=== PATIENT | female | born 1975 | race African-American/Black ===

== ENCOUNTER 2020-02-21 00:15 | Emergency (ER) | payer MEDICAID ==
[~2020-02-21] VITALS: Ht 162.6 cm; Wt 61.0 kg
[2020-02-21] MEDS ORDERED: KETOROLAC 30MG/ML VIAL IV STA (01:09)
[2020-02-21 02:13] LABS: CLARITY URINE CLEAR (CLEAR); COLOR URINE YELLOW (YELLOW); KETONES URINE TRACE (NEGATIVE); LEUKOCYTE ESTERASE URINE NEGATIVE (NEGATIVE); NITRITE URINE NEGATIVE (NEGATIVE); OCCULT BLOOD URINE 2+ (NEGATIVE); PH URINE 5.5 (4.5-8.0); PROTEIN URINE NEGATIVE (NEGATIVE); SPECIFIC GRAVITY URINE 1.031 (1.005-1.030)
[2020-02-21 02:48] LABS: BASOPHILS % 0.2 % (0.0-2.0); EOSINOPHILS % 1.4 % (0.0-5.0); HEMATOCRIT. 33.9 % (36.0-48.0); HEMOGLOBIN. 11.5 g/dL (12.0-16.0); LYMPHOCYTES % 21.8 % (20.0-50.0); MEAN CORPUSCULAR HEMOGLOBIN 30.7 pg (28.0-32.0); MEAN CORPUSCULAR VOLUME 90.4 fL (81.0-99.0); MEAN PLATELET VOLUME 7.4 fl (7.4-10.4); MONOCYTES % 7.2 % (2.0-8.0); NEUTROPHILS % 69.4 % (40.0-76.0); PLATELET 387 x1000/uL (130-400); RED BLOOD CELL COUNT 3.75 mill/uL (4.2-5.4)
[2020-02-21 02:49] LABS: CHLORIDE 107 mEq/L (98-107)
[2020-02-21 02:54] LABS: HCG SCREEN NEGATIVE
[2020-02-21 03:34] LABS: PROTHROMBIN TIME 10.5 sec (9.6-11.0)
[2020-02-21] MEDS ORDERED: POTASSIUM CHLORIDE 20MEQ TABLET SR PO SCH (04:30)
[2020-02-21] MEDS ORDERED: MAGNESIUM CITRATE 300ML SOLUTION PO ONE (04:30)
[2020-02-21 06:08] VITALS: BP 144/99
== END 2020-02-21 06:17 | disposition home or self-care (01) ==
LOC: ER 00:36
DX: K85.90 Acute pancreatitis without necrosis or infection, unspecified (principal); I10 Essential (primary) hypertension; K56.41 Fecal impaction; E87.6 Hypokalemia; D64.9 Anemia, unspecified
CPT/HCPCS: 36415; 74021; 76770; 80053; 81003; 83690; 84703; 85025; 85610; 96374; 99285; J1885

== ENCOUNTER 2020-03-03 19:55 | Emergency (ER) | payer MEDICAID ==
[~2020-03-03] VITALS: Ht 165.1 cm; Wt 59.0 kg
[2020-03-03] MEDS ORDERED: SODIUM CHLORIDE 0.9% 1,000 ML IV ONE (20:12)
[2020-03-03 20:50] LABS: BASOPHILS % 0.6 % (0.0-2.0); HEMATOCRIT. 42.8 % (36.0-48.0); HEMOGLOBIN. 14.5 g/dL (12.0-16.0); LYMPHOCYTES % 23.6 % (20.0-50.0); MEAN CORPUSCULAR HEMOGLOBIN 30.8 pg (28.0-32.0); MEAN PLATELET VOLUME 8.1 fl (7.4-10.4); MONOCYTES % 5.3 % (2.0-8.0); NEUTROPHILS % 69.5 % (40.0-76.0); PLATELET 390 x1000/uL (130-400)
[2020-03-03 20:56] LABS: CHLORIDE 103 mEq/L (98-107)
[2020-03-03 20:57] LABS: CLARITY URINE CLEAR (CLEAR); COLOR URINE YELLOW (YELLOW); KETONES URINE NEGATIVE (NEGATIVE); LEUKOCYTE ESTERASE URINE NEGATIVE (NEGATIVE); NITRITE URINE NEGATIVE (NEGATIVE); OCCULT BLOOD URINE NEGATIVE (NEGATIVE); PROTEIN URINE NEGATIVE (NEGATIVE); SPECIFIC GRAVITY URINE 1.005 (1.005-1.030); UROBILINOGEN URINE 0.2 E.U./dL (0.2-1.0)
[2020-03-03 21:00] LABS: ETHANOL BLOOD < 10 mg/dL
[2020-03-03 21:03] LABS: HCG SCREEN NEGATIVE
[2020-03-03 21:07] LABS: PROTHROMBIN TIME 10.3 sec (9.6-11.0)
[2020-03-03 21:17] LABS: *BENZODIAZEPINES SCREEN URINE NEGATIVE (NEGATIVE); *COCAINE SCREEN URINE NEGATIVE (NEGATIVE)
[2020-03-03 21:18] LABS: *AMPHETAMINES SCREEN URINE NEGATIVE (NEGATIVE); *BARBITURATES SCREEN URINE NEGATIVE (NEGATIVE); CANNABINOID URINE SCREEN NEGATIVE (NEGATIVE); METHADONE URINE SCREEN NEGATIVE (NEGATIVE); OPIATES URINE SCREEN NEGATIVE (NEGATIVE); PHENCYCLIDINE URINE SCREEN NEGATIVE (NEGATIVE)
[2020-03-04 00:47] VITALS: BP 106/64
== END 2020-03-04 00:48 | disposition home or self-care (01) ==
LOC: ER 19:55
DX: R10.9 Unspecified abdominal pain (principal); I10 Essential (primary) hypertension; K59.00 Constipation, unspecified; R19.7 Diarrhea, unspecified
CPT/HCPCS: 36415; 74176; 80053; 80305; 80320; 81003; 83690; 83880; 84484; 84703; 85025; 85610; 93005; 99285; J7030; G0480

== ENCOUNTER 2020-04-18 09:43 | Emergency (ER) | payer MEDICAID ==
[~2020-04-18] VITALS: Ht 165.1 cm; Wt 64.0 kg
[2020-04-18] MEDS ORDERED: NITROGLYCERIN 0.4MG TABLET SL SL PRN (10:30)
[2020-04-18] MEDS ORDERED: ASPIRIN 81MG TABLET PO ONE (10:30)
[2020-04-18 10:54] LABS: CLARITY URINE CLEAR (CLEAR); COLOR URINE YELLOW (YELLOW); KETONES URINE TRACE (NEGATIVE); LEUKOCYTE ESTERASE URINE NEGATIVE (NEGATIVE); NITRITE URINE NEGATIVE (NEGATIVE); OCCULT BLOOD URINE 1+ (NEGATIVE); PROTEIN URINE NEGATIVE (NEGATIVE); SPECIFIC GRAVITY URINE 1.029 (1.005-1.030); UROBILINOGEN URINE 0.2 E.U./dL (0.2-1.0)
[2020-04-18 11:02] LABS: BASOPHILS % 0.7 % (0.0-2.0); EOSINOPHILS % 1.7 % (0.0-5.0); HEMATOCRIT. 35.3 % (36.0-48.0); HEMOGLOBIN. 11.9 g/dL (12.0-16.0); LYMPHOCYTES % 16.8 % (20.0-50.0); MEAN CORPUSCULAR HEMOGLOBIN 31.5 pg (28.0-32.0); MEAN CORPUSCULAR VOLUME 93.2 fL (81.0-99.0); MEAN PLATELET VOLUME 7.8 fl (7.4-10.4); NEUTROPHILS % 71.8 % (40.0-76.0); PLATELET 322 x1000/uL (130-400); RED BLOOD CELL COUNT 3.78 mill/uL (4.2-5.4); RED CELL DISTRIBUTION WIDTH 14.3 % (11.6-14.6)
[2020-04-18 11:03] LABS: CHLORIDE 108 mEq/L (98-107)
[2020-04-18 11:18] LABS: HCG SCREEN NEGATIVE
[2020-04-18 11:29] LABS: *AMPHETAMINES SCREEN URINE NEGATIVE (NEGATIVE); *BENZODIAZEPINES SCREEN URINE NEGATIVE (NEGATIVE); *COCAINE SCREEN URINE NEGATIVE (NEGATIVE); METHADONE URINE SCREEN NEGATIVE (NEGATIVE); OPIATES URINE SCREEN NEGATIVE (NEGATIVE); PHENCYCLIDINE URINE SCREEN NEGATIVE (NEGATIVE)
[2020-04-18 11:30] LABS: *BARBITURATES SCREEN URINE NEGATIVE (NEGATIVE); CANNABINOID URINE SCREEN NEGATIVE (NEGATIVE)
[2020-04-18 16:16] VITALS: BP 147/94
== END 2020-04-18 15:19 ==
LOC: ER 09:43
DX: R07.89 Other chest pain (principal); R45.851 Suicidal ideations; F41.9 Anxiety disorder, unspecified; F32.9 Major depressive disorder, single episode, unspecified; F17.290 Nicotine dependence, other tobacco product, uncomplicated; F12.10 Cannabis abuse, uncomplicated
CPT/HCPCS: 36415; 71045; 80053; 80305; 81003; 81025; 83690; 83880; 84484; 84703; 85025; 93005; 99285; Z7610